=== PATIENT | female | born 1990 | race Caucasian/White ===

== ENCOUNTER 2017-02-09 20:54 | Emergency (ER) | payer OTHER ==
--- NOTE | 2017-02-09 21:27 | ED Physician Documentation ---
Sore Throat/Dental Pain - HISTORIAN Historian: patient - HPI Stated Complaint: rt lower jaw dental pain Chief Complaint: Dental Pain Further Comments: yes (27 year old female presents with 3 weeks of dental pain - states she has taken 2 rounds of clindamycin. States she has been seen at [facility] and by the dentist Dr Horner. Requesting medication to get rid of dental infection.) - ROS CONST: no problems CVS/RESP: none GI/: denies: nausea, vomiting MS/SKIN/LYMPH: denies: muscle aches, rash, leg swelling, ankle swelling, other NEURO/PSYCH: none - PAST HX Past History: gum disease Other History: other (Factor 8 deficiency) Allergies/Adverse Reactions: Allergies Allergy/AdvReac Type Severity Reaction Status Date / Time No Known Allergies Allergy Verified 02/09/17 21:44 Home Medications: Ambulatory Orders Medication Instructions Recorded Rivaroxaban [Xarelto] 20 mg PO D 02/09/17 - SOCIAL HX Smoking History: cigarettes - FAMILY HX Family History: No - VITAL SIGNS Vital Signs: Vital Signs Temp Pulse Resp BP Pulse Ox 98.4 F 88 16 129/82 98 02/09/17 20:55 02/09/17 20:55 02/09/17 20:55 02/09/17 20:55 02/09/17 20:55 - REVIEWED ASSESSMENTS Nursing Assessment Reviewed: Yes Vitals Reviewed: Yes Progress - Progress Progress: No abscess noted, instructed patient to complete current antibiotic prescription and follow up with dentist tomorrow. Dental Pain Physical Exam - EXAM General Appearance: mild distress Head/Neck: head nml inspection, trachea midline, no lymphadenopathy, thyroid nml , neck nml inspection Mouth/Throat: lips nml, gums nml, pharynx nml, voice nml, no drooling, no air way problems, no thrush, membranes nml, other (#46 fractured, no abscess noted. ) Respiratory: no resp. distress CVS: reg. rate & rhythm Skin: normal color, warm/dry, NR, INT, PAL, DR Neuro/Psych: No: weakness Discharge Clincal Impression: Fractured tooth Qualifiers: Encounter type: initial encounter Fracture type: closed Qualified Code(s): S02.5XXA - Fracture of tooth (traumatic), initial encounter for closed fracture Referrals: Primary Doctor,No [Primary Care Provider] - 2 Days Additional Instructions: Follow up with Dr Horner tomorrow Home Medications: Ambulatory Orders Rivaroxaban [Xarelto] 20 mg PO D 02/09/17 Condition: Stable Disposition: 01 HOME, SELF-CARE Decision to Admit: NO Decision Time: 21:33
[2017-02-09 22:36] VITALS: BP 127/68
== END 2017-02-09 21:44 | disposition home or self-care (01) ==
LOC: ED 20:54
DX: K03.81 Cracked tooth (principal)
CPT/HCPCS: 99282; 99283